=== PATIENT | female | born 1985 | race Caucasian/White ===

== ENCOUNTER 2016-09-06 10:04 | Outpatient (CLI) | payer BC ==
[2016-09-06 10:37] VITALS: BMI 27.6
== END 2016-09-06 11:51 | disposition home or self-care (01) ==
LOC: SUATTDRO 10:04 → FBCOUT 10:04 → FBC 10:05 → FBCOUT 11:51
PROVIDERS: ATTEND Advanced Practice Midwife
DX: O47.9 False labor, unspecified (principal); Z3A.00 Weeks of gestation of pregnancy not specified

== ENCOUNTER 2016-09-06 23:40 | Inpatient (IN) | payer BC ==
[2016-09-06 23:57] VITALS: BMI 27.0
[2016-09-07] MEDS ORDERED: MINERAL OIL 25 ML BOT ONE (00:27)
[2016-09-07] MEDS ORDERED: IV START KIT ONE (00:27)
[2016-09-07] MEDS ORDERED: LIDOCAINE 1% (PRES FREE) 30 ML VIAL ONE (00:27)
[2016-09-07] MEDS ORDERED: LACTATED RINGERS 1,000 ML ONE (00:27)
[2016-09-07] MEDS ORDERED: OXYTOCIN 10 UNITS/ML VIAL ONE (00:27)
[2016-09-07] MEDS ORDERED: LIDOCAINE Viscous 2% 15 ML UDCUP ONE (00:27)
[2016-09-07] MEDS ORDERED: SODIUM CHLORIDE 0.9% FLUSH 30 ML ONE (00:28)
[2016-09-07] MEDS ORDERED: PUMP TUBING ONE (00:28)
[2016-09-07] MEDS ORDERED: OXYTOCIN IN LR 500 ML IV ONE ×3 (00:28→03:42)
[2016-09-07] MEDS ORDERED: PENICILLIN G POTASSIUM 5 MMU in NS 0.9% (MINI-BAG PLUS) 100 ML IV ONE (00:32)
[2016-09-07] MEDS ORDERED: LACTATED RINGERS 1,000 ML IV PRN ×2 (00:32→03:42)
[2016-09-07] MEDS ORDERED: LACTATED RINGERS 1,000 ML IV SCH (00:45)
--- NOTE | 2016-09-07 01:32 | PCMAN ---
OB Admission Note - History : 4 Term: 3 : 0 Abortions (S&E): 0 Livin EDC:: 09/11/16 Gestational Age (weeks): 39 Days (#/7): 2 Admit Cervical Dilation:: 5 Admit Cervical Effacement (%):: 70 Admit Station:: -3 Admit Presentaton:: cephalic Membrane Status: Intact Labor Onset (Date): 09/06/16 Labor Onset (Time): 23:00 Contractions: Yes Contraction Frequency:: q 3-5min Heart Rate:: 125 Status:: Cat.I appropriate for [place] EFW:: 7.5lbs Summary of Course:: Onset to care ate 13wks x 10visits, pre wt 151lbs, BMI 23.9, TWG 30lbs. OB hx includes PPH x 2. complicated by depression, treated with zoloft. Previous included depression with suicide ideation. Has been stable during this . She is GBS pos. Throughout the day had prodromal labor which ultimately resolved. After sleeping during the evening she woke up to painful regular contractions and came to [facility]. Desires unmedicated labor and BTL for control. - Labs Blood Type: A (+) positive Hct/Hgb:: 12.1 Rubella Status: Immune GBS Status: Positive Other Labs:: 1hr GTT 111 - Review of Systems ros neg - Physical Exam General: Afebrile, Mild Distress (appropriate for labor) Psych/Mental Status: Mood/Affect Appropriate, Judgment/Insight Intact Neurological: Grossly Intact, Alert, Oriented x 4, Normal Gait, Normal Speech Lungs: Clear to Auscultation Bilaterally Cardiovascular: Regular Rate and Rhythm Genitourinary: Normal Female Genitalia Rectal Exam: Deferred Extremities: Full ROM Skin: Normal Color, Warm, Dry, Intact - Problems (1) Active labor at term Status: Acute Assessment/Plan: A: with IUP at 39w2d Membranes intact, GBS pos Active Labor Hx depression FHT: Cat. I appropriate for IA Desires BTL P: Admit to [facility] Initiate IV and GBS antibiotic prophylaxis Encourage hydrotherapy and active movement anticipate (2) Group B streptococcal infection during Status: Acute Code: O98.819 Assessment/Plan: A: with IUP at 39w2d Membranes intact, GBS pos Active Labor Hx depression FHT: Cat. I appropriate for IA Desires BTL P: Admit to [facility] Initiate IV and GBS antibiotic prophylaxis Encourage hydrotherapy and active movement anticipate
[2016-09-07 03:18] LABS: MEAN CELL VOLUME 97.7 fl (81.0-99.0); MEAN CORPUSCULAR HEMOGLOBIN 32.6 pg (27.0-31.0); MEAN CORPUSCULAR HGB CONC 33.3 g/dl (33.0-37.0); RED CELL DISTRIBUTION WIDTH 13.2 % (11.5-14.5)
[2016-09-07] MEDS ORDERED: MAGNESIUM HYDROXIDE 30 ML UDCUP PO PRN (03:42)
[2016-09-07] MEDS ORDERED: LANOLIN 50 APPLIC/7G TUBE TP PRN (03:42)
[2016-09-07] MEDS ORDERED: ACETAMINOPHEN 325 MG TABLET PO PRN (03:42)
[2016-09-07] MEDS ORDERED: CALCIUM CARBONATE 500 MG TAB.CHEW PO PRN (03:42)
[2016-09-07] MEDS ORDERED: BENZOCAINE/MENTHOL 60 APPLIC/BOT TP PRN (03:42)
[2016-09-07] MEDS: IBUPROFEN 800 MG TABLET PO SCH ×2 (03:56→13:03)
[2016-09-07] MEDS: HYDROCODONE/ACETAMINOPHEN 5/325MG TABLET PO PRN ×3 (03:57→14:56)
[2016-09-07] MEDS ORDERED: PENICILLIN G 3 MIL UNIT PREMIX 3 MMU in Premix (D5W) 50 ml 1 EACH IV SCH (05:00)
--- NOTE | 2016-09-07 14:21 | PDOC44 ---
- Subjective Day: 0 (Day of delivery) Feels well. Deciding to have implanon at 4 weeks . Reports Pain Tolerable, Reports , Reports Lochia Moderate - Objective Temp Pulse Resp BP Pulse Ox 97.8 F 68 16 121/71 09/07/16 12:57 09/07/16 12:57 09/07/16 12:57 09/07/16 12:57 Lab Results 09/07/16 00:49 WBC 12.3 H RBC 3.99 L Hgb 13.0 Hct 39.0 Plt Count 200 09/07/16 00:49 MCH 32.6 H Current Medications Generic Name Dose Route Start Last Admin Trade Name Freq PRN Reason Stop Dose Admin Acetaminophen 325 - 650 mg 09/07/16 03:42 Tylenol PO Q4H PRN Pain (Mild) Acetaminophen/Hydrocodone Bitart 1 - 2 tab 09/07/16 03:42 09/07/16 08:02 Warren 5/325 PO 2 tab Q4H PRN Administration Pain (Moderate) Benzocaine/Menthol 1 applic 09/07/16 03:42 Dermoplast TP PRN PRN Patient Comfort Calcium Carbonate/Glycine 500 - 1,000 mg 09/07/16 03:42 Tums PO BID PRN Indigestion Docusate Sodium 100 mg 09/07/16 03:42 Colace PO DAILY PRN Comfort Emollient Ointment 1 applic 09/07/16 03:42 [id number] TP PRN PRN sore nipples Lactated Ringer's 1,000 mls @ 100 mls/hr 09/07/16 03:42 Lactated Ringers IV .Q10H PRN Titrate per clinical situation Ibuprofen 800 mg 09/07/16 03:42 09/07/16 13:03 Motrin PO 800 mg Q6H LOAN Administration Magnesium Hydroxide 30 ml 09/07/16 03:42 Milk Of Magnesia PO BEDTIME PRN Constipation Sodium Chloride 10 ml 09/07/16 03:42 Normal Saline 10ml Flush IV PRN PRN IV Flush Sodium Chloride 10 ml 09/07/16 09:00 09/07/16 08:03 Normal Saline 10ml Flush IV 10 ml Q8HR LOAN Administration - Physical Exam General: Afebrile Psych/Mental Status: Mood/Affect Appropriate, Bonding Well Breast: Soft, Nipples Intact Fundus: Firm, Midline, At Umbilicus Genitourinary: Normal Female Genitalia - Problems:Assessment/Plan (1) care following vaginal delivery Status: Acute Assessment/Plan: A: Stable P: Assess for antidepressents on rounds tomorrow due to hx of PP Depression after last and suicidal ideation in this .. Disposition: Stable
[2016-09-07] MEDS: SERTRALINE HCL 50 MG TABLET PO SCH (14:49)
[2016-09-08] MEDS: IBUPROFEN 800 MG TABLET PO SCH ×6 (00:23→18:38)
[2016-09-08 05:57] LABS: HEMATOCRIT 33.2 % (37.0-47.0); HEMOGLOBIN 10.9 gm/l (12.0-16.0)
[2016-09-08] MEDS: DOCUSATE SODIUM 100 MG CAPSULE PO PRN (08:29)
[2016-09-08] MEDS: SERTRALINE HCL 50 MG TABLET PO SCH (08:54)
--- NOTE | 2016-09-08 12:32 | PDOC44 ---
- Subjective Day: 2 (stable) S: Sitting up in bed without difficulty. Baby is a little bit more sleepy at the breast today but has not difficulty with latch. Pain is well controlled with ibuprofen and bleeding is minimal. She is up to void without difficulty. Plans nexplanon at 2-4wks. Reports Flatus, Reports Pain Tolerable, Reports , Reports Lochia Light, Reports Tolerating Regular Diet - Objective Temp Pulse Resp BP Pulse Ox 98.1 F 64 16 116/74 09/08/16 07:39 09/08/16 07:39 09/08/16 07:39 09/08/16 07:39 Lab Results 09/08/16 05:30 Hgb 10.9 L D Hct 33.2 L Current Medications Generic Name Dose Route Start Last Admin Trade Name Freq PRN Reason Stop Dose Admin Acetaminophen 325 - 650 mg 09/07/16 03:42 Tylenol PO Q4H PRN Pain (Mild) Acetaminophen/Hydrocodone Bitart 1 - 2 tab 09/07/16 03:42 09/07/16 14:56 Lafferty 5/325 PO 1 tab Q4H PRN Administration Pain (Moderate) Benzocaine/Menthol 1 applic 09/07/16 03:42 Dermoplast TP PRN PRN Patient Comfort Calcium Carbonate/Glycine 500 - 1,000 mg 09/07/16 03:42 Tums PO BID PRN Indigestion Docusate Sodium 100 mg 09/07/16 03:42 09/08/16 08:29 Colace PO 100 mg DAILY PRN Administration Comfort Emollient Ointment 1 applic 09/07/16 03:42 [id number] TP PRN PRN sore nipples Lactated Ringer's 1,000 mls @ 100 mls/hr 09/07/16 03:42 Lactated Ringers IV .Q10H PRN Titrate per clinical situation Ibuprofen 800 mg 09/07/16 03:42 09/08/16 07:38 Motrin PO 800 mg Q6H LOAN Administration Magnesium Hydroxide 30 ml 09/07/16 03:42 Milk Of Magnesia PO BEDTIME PRN Constipation Sertraline HCl 50 mg 09/07/16 14:30 09/08/16 08:54 Zoloft PO 50 mg DAILY LOAN Administration Sodium Chloride 10 ml 09/07/16 03:42 09/07/16 14:49 Normal Saline 10ml Flush IV 10 ml PRN PRN Administration IV Flush Sodium Chloride 10 ml 09/07/16 09:00 09/08/16 08:54 Normal Saline 10ml Flush IV Not Given Q8HR LOAN - Physical Exam General: Afebrile Psych/Mental Status: Mood/Affect Appropriate, Judgment/Insight Intact, Bonding Well Neurological: Grossly Intact, Alert, Oriented x 4, Normal Gait, Normal Speech Lungs: Clear to Auscultation Bilaterally, Normal Air Movement Cardiovascular: Regular Rate and Rhythm Breast: Soft, Skin intact Fundus: Firm, Midline, Below Umbilicus Lochia: Light - Problems:Assessment/Plan (1) Normal vaginal delivery Status: Acute Assessment/Plan: A: PPD #2 s/p exclusively stable, routine recovery hx ppd, on zoloft P: Reviewed normal recovery, position changes to help wake up baby, normal routine feeding behaviors Zoloft started last night, no concerns or questions Anticipate DC tomorrow Disposition: Anticipate DC Home Tomorrow
[2016-09-09] MEDS: IBUPROFEN 800 MG TABLET PO SCH ×2 (06:10→07:39)
[2016-09-09 07:39] VITALS: BP 123/80
[2016-09-09] MEDS: DOCUSATE SODIUM 100 MG CAPSULE PO PRN (07:39)
[2016-09-09] MEDS: SERTRALINE HCL 50 MG TABLET PO SCH (07:39)
--- NOTE | 2016-09-09 10:17 | PDOC39B ---
Hospital Course: ADMIT DATE: 09/07/16 DISCHARGE DATE: 09/09/16 ADMISSION DIAGNOSES: active labor at term PROCEDURES: HISTORY OF PRESENT ILLNESS: 31 year old G4 T3 L3 at 39 weeks 3 days presenting with active labor at term. Achieved an of a viable male infant. Inadequate GBS prophylaxis. Stable course. HOSPITAL COURSE: By day of discharge the patient is ambulating, eating, voiding , and passing flatus without difficulty. Pain is controlled and lochia is appropriate. She is exclusively and is taking care to re-latch baby PRN. She desires the Nexplanon at 4wks . She reports good family support. Her will be taking 3-4 weeks off of work. She has started on Zoloft . She has been seen by care management. - Physical Exam Vital Signs: Temp Pulse Resp BP Pulse Ox 98.3 F 60 18 123/80 09/09/16 07:34 09/09/16 07:34 09/09/16 07:34 09/09/16 07:34 General: Afebrile Psych/Mental Status: Mood/Affect Appropriate, Judgment/Insight Intact, Bonding Well Lungs: Clear to Auscultation Bilaterally Cardiovascular: Regular Rate and Rhythm Breast: Soft, Skin intact, Nipples Intact Fundus: Firm, Midline, Below Umbilicus Genitourinary: Normal Female Genitalia Lochia: Light Extremities: Full ROM Skin: Normal Color - Discharge Diagnosis (1) care following vaginal delivery Status: Acute Assessment/Plan: A: Day 2 Lochia stable exclusively Hx depression & suicidal ideation this -started Zoloft yesterday P: Education: handout given and reviewed. Warning signs discussed. : encourage on-demand feeds, re-latch as necessary, follow-up with [facility]IC or [facility]AB[facility] clinic PRN, lanolin for sore nipples Rx: Zoloft & ibuprofen Depression: Zoloft 50mg x2 weeks, then 75mg and reassess symptoms after 2 weeks. Reviewed therapeutic dosage is usually >50mg. Asked pt to pay close attention to symptoms and if she has any new depressive or anxious symptoms, or if she experiences suicidal thoughts, she is to call on-call CNM KAM. Pt agrees. Discussed that if Zoloft doesn't work for her, she will need to see a PMHNP for medication evaluation, which she also agrees to. Contraception: Nexplanon at 4wks if milk supply is well-established. Social: encouraged her to ask for support from family and with help with other children and household work. Follow-up: 1wk on 09/17/16 at 1:20pm in [place], or PRN. - Discharge Plan Condition: Stable Disposition: Home Additional Instructions: Congratulations on your ! You have a follow-up appointment with the midwives on 09/17/16 at 1:20pm in [place]. If you have any questions, concerns, or need to reschedule, please call the clinic at [phone]. Additionally, if you experience any new anxiety or depressive symptoms after starting the medication Sertraline, or if you experience thoughts of harming yourself, please call the on-call mule rider at [phone] or the National Suicide Prevention Lifeline at . Prescriptions: Ibuprofen [Motrin] 1 tab PO Q6H PRN #30 tablet PRN Reason: Pain Sertraline HCl 25 mg PO DAILY #70 tablet
--- NOTE | 2016-09-09 10:37 | PCMDEL ---
Delivery Note - Labor 1st stage (hr/min):: 4h6m 2nd stage (hr/min):: 0h5m 3rd stage (hr/min):: 0h12m Total (hr/min):: 4h23m Pushed (hr/min):: 0h5m - Delivery Delivery (Date): 09/07/16 Delivery (Time): 02:41 Infant Gender: Male Weight: 8 lb 3 oz Length: 1 ft 7.75 in Position: OA Umbilical Cord: 3 Vessel 1 Minute Total: 6 5 Minute Total: 8 Placenta:: francisca, spontaneous, intact, 3vc EBL:: 200ml Perineum:: intact Suture:: none Anesthesia/Meds:: none Length ROM:: 0h5m Comments:: Pavithra arrived in active labor and made steady quick progress to complete. She then pushed effectively in side lying with the peanut ball to achieve of vigorous male infant, placed immediately skin to skin for drying and bonding. Apgars 6/8. Delayed cord clamping until cessation of pulsation and cut by FOB. AMTSL initiated and cord blood collected. Spontaneous delivery of intact placenta, francisca, 3vc. Intact perineum upon inspection. Hemostasis achieved. QBL 200ml. mom and baby stable.
== END 2016-09-09 16:55 | disposition home or self-care (01) | DRG 775 ==
LOC: FBCOUT 23:40 → FBC 23:43 → FBCOUT 09-07 00:25
PROVIDERS: ADMIT Advanced Practice Midwife; ATTEND Advanced Practice Midwife
PROC: 10E0XZZ Delivery of Products of Conception, External Approach (ICD-10-PCS; principal; 2016-09-07)
DX: O99.824 Streptococcus B carrier state complicating childbirth (principal); O99.344 Other mental disorders complicating childbirth; F32.9 Major depressive disorder, single episode, unspecified; Z3A.39 39 weeks gestation of pregnancy; Z37.0 Single live birth

== ENCOUNTER 2016-09-11 15:41 | Outpatient (CLI) | payer BC | END 2016-09-11 15:42 | disposition home or self-care (01) | LOC: BABIESSH 15:41 | PROVIDERS: ATTEND Advanced Practice Midwife | DX: Z39.1 Encounter for care and examination of lactating mother (principal) ==